=== PATIENT | female | born 1960 | race Caucasian/White ===

== ENCOUNTER → 2023-08-01 12:45 | Outpatient (REF) | payer MEDICARE, OTHER, SELFPAY | LOC: DHCBC/DCA 12:45 | PROVIDERS: ATTENDING PHYSICIAN Internal Medicine; FAMILY PHYSICIAN Nurse Practitioner Adult Health | DX: Z01.810 Encounter for preprocedural cardiovascular examination (principal); I10 Essential (primary) hypertension; I63.512 Cerebral infarction due to unspecified occlusion or stenosis of left middle cerebral artery; R06.09 Other forms of dyspnea | CPT/HCPCS: 78452; 93017; A9500; J2785 ==

== ENCOUNTER → 2023-08-02 10:36 | Outpatient (REF) | payer MEDICARE, OTHER, SELFPAY | LOC: HWRCS 10:36 | PROVIDERS: ATTENDING PHYSICIAN Internal Medicine; FAMILY PHYSICIAN Nurse Practitioner Adult Health | DX: Z01.810 Encounter for preprocedural cardiovascular examination (principal); I10 Essential (primary) hypertension; I63.512 Cerebral infarction due to unspecified occlusion or stenosis of left middle cerebral artery; R91.1 Solitary pulmonary nodule; R06.09 Other forms of dyspnea | CPT/HCPCS: 93306 ==

== ENCOUNTER 2023-08-28 11:32 | Inpatient (IN) | payer MEDICARE, OTHER, SELFPAY ==
[2023-08-01 09:15] VITALS: BMI 28.0
[2023-08-01 09:46] LABS: Hematocrit 47.3 % (37.0-47.0); Hemoglobin 16.5 g/dL (12.0-16.0); Mean Corp Hgb Conc. 34.9 g/dL (33.0-37.0); Mean Corpuscular Hgb 31.5 pg (27.0-31.0); Mean Corpuscular Volume 90.3 fL (81.0-99.0); Mean Platelet Volume 10.6 fL (7.4-10.4); Platelet Count 297 10^3/uL (130-400); Red Blood Cell Count 5.24 10^6/uL (4.20-5.40)
[2023-08-01 09:54] LABS: INR 0.97; PT 12.9 Sec (11.4-14.6)
[2023-08-01 10:07] LABS: APTT 46.4 Sec (23.4-35.0)
[2023-08-01 12:25] LABS: ALT (SGPT) 19 U/L (0-35); AST (SGOT) 24 U/L (14-36); Albumin 4.2 g/dl (3.5-5.0); Alkaline Phosphatase 84 U/L (38-126); Blood Urea Nitrogen 19 mg/dl (7-17); Calcium 10.2 mg/dl (8.4-10.2); Carbon Dioxide 28 mmol/L (22-30); Chloride 105 mmol/L (98-107); Estimated Creatinine Clearance 64 ml/min; Glucose 100 mg/dl (70-99); Potassium 5.3 mmol/L (3.5-5.1); Sodium 141 mmol/L (135-145); Total Bilirubin 0.4 mg/dl (0.2-1.3); Total Protein 6.8 g/dl (6.3-8.2); eGFR > 60.00
--- NOTE | 2023-08-02 08:15 | PTCARENOTE ---
Heide @ Dr. Palmer office notified of patients PTT 46.4 collected on 07/31
[2023-08-28] VITALS (16 sets, daily range): BP systolic 70–124; BP diastolic 43–77; BMI 28.0; BMI 29.3
[2023-08-28 12:03] LABS: Glucose - Point of Care 138 mg/dl (70-99)
[2023-08-28] MEDS: NEURONTIN 300 MG PO (12:08)
[2023-08-28] MEDS: NORMOSOL-R 1000 IV (12:08)
[2023-08-28] MEDS: TYLENOL 1000 MG PO (12:08)
[2023-08-28] MEDS: HEPARIN 5000 UNITS SC ×2 (12:09→20:07)
[2023-08-28 15:39] LABS: Glucose - Point of Care 113 mg/dl (70-99)
[2023-08-28] MEDS: NEO-SYNEPHRINE 250 IV (16:17)
[2023-08-28] MEDS: D5/0.9% SODIUM CHLORIDE 1000 IV (17:15)
[2023-08-28 18:07] LABS: Glucose - Point of Care 162 mg/dl (70-99)
--- NOTE | 2023-08-28 18:13 | PTCARENOTE ---
Pt rec'd into IMU 3347 from PACU, on IVF and Yoel gtt at 25 mcg/min...order clarified with Dr. Wang. Pt is AOx3 with no complaints of pain. Right chest tube in place to water seal, no further drainage after initial ~10 ml blood noted as per report
from [facility]. PT is hungry for dinner, diet advanced to regular per orders. BPs improved to 101/77 at this time. Will wean yoel as able. Pt with call caldwell in reach, safe environment maintained.
[2023-08-28] MEDS: TYLENOL PO (19:14)
[2023-08-28] MEDS: NEURONTIN PO (19:52)
[2023-08-28] MEDS: COLACE 100 MG PO (20:06)
[2023-08-28] MEDS: GLUCOPHAGE 500 MG PO (20:06)
[2023-08-28] MEDS: TYLENOL 650 MG PO ×2 (20:06→23:20)
[2023-08-28] MEDS: LIPITOR 40 MG PO (20:06)
[2023-08-28] MEDS: NEURONTIN 200 MG PO (20:07)
[2023-08-28] MEDS: ROXICODONE 5 MG PO (20:39)
--- NOTE | 2023-08-28 20:40 | PTCARENOTE ---
Received pt from heidy IBRAHIM. Pt is AAOx3. NSR on the monitor. On Yoel gtt @ 25 mcg/min (see worklist). Pt on 2L NC O2 sat 95%, lungs coarse/diminished. Right chest tube in place to water seal. BRP x1. D5 NS infusing @ 75 ml/hr. Pt is laying
comfortable in bed with call caldwell in reach.
[2023-08-29] VITALS (17 sets, daily range): BP systolic 81–136; BP diastolic 62–96; PULSE 78; O2SAT 95–96
[2023-08-29] MEDS: TYLENOL 650 MG PO ×6 (02:57→23:09)
[2023-08-29] MEDS: ROXICODONE 5 MG PO ×3 (02:57→15:18)
[2023-08-29] MEDS: SYNTHROID 112 MCG PO (05:28)
[2023-08-29] MEDS: D5/0.9% SODIUM CHLORIDE 1000 IV (05:28)
[2023-08-29] MEDS: CYMBALTA DELAYED RELEASE 60 MG PO (08:54)
[2023-08-29] MEDS: NEURONTIN 200 MG PO ×3 (08:56→21:43)
[2023-08-29] MEDS: COZAAR 25 MG PO (08:56)
[2023-08-29] MEDS: GLUCOPHAGE 500 MG PO ×2 (08:56→17:13)
[2023-08-29] MEDS: COLACE 100 MG PO ×2 (08:56→20:07)
[2023-08-29] MEDS: HEPARIN 5000 UNITS SC ×2 (08:57→20:07)
[2023-08-29] MEDS: VESICARE 5 MG PO (10:21)
--- NOTE | 2023-08-29 14:22 | PTCARENOTE ---
Patient with chest tube to R upper chest. Pt occasionally c/o of pain to the site, see MAR for administration. Chest tube had red drainage from chest, unchanged from prior. Patient is on RA 94-95%. Assessment, care and VS as charted.
--- NOTE | 2023-08-29 14:57 | CM ---
Patient who is s/p minimally invasive right lower lung tumor and mediastinal lymph node dissection. Chest tube. PT recommends Home PT vs No needs. OT recommends HH.
Met with patient and her friend Tobin.
The patient resides alone in a first floor apartment with 2 BERNABE.
The patient has been independent in ADLs and ambulation.
She is active and retired.
DME - shower chair
VN - prior VN, can't remember agency
SNF - prior SNF in [facility], can't remember name
PCP - - [facility]
[place] [facility] [place] and patient declined.
Plan home.
--- NOTE | 2023-08-29 15:35 | W.PN.GENERIC ---
Assessment / Plan
-
S/p resection righ lower lobe lung cancer POD #1
Stable
Chest tube dc'd
Will CXR in 2-3 hours, if ok then tsf to 2S
Encourage pulmonary toilet
OOB and ambulate
Physician Progress Note
Subjective
C/o some incisional pain.
Objective
Vital Signs
Temp Pulse Resp BP Pulse Ox
98.5 F 73 20 108/62 94
08/29/23 07:50 08/29/23 14:00 08/29/23 14:00 08/29/23 14:00 08/29/23 10:56
Lab Results
08/01/23 09:12
08/01/23 09:12
Chest - CTA x2. Incision - CDI
Chest tube without airleak and min output
[2023-08-29] MEDS: TORADOL 15 MG IV ×2 (15:56→21:43)
--- NOTE | 2023-08-29 19:59 | PTCARENOTE ---
At change of shift pt chest tube site was leaking a large amount of blood, tube was removed during dayshift. Site was cleaned and redressed.
[2023-08-29] MEDS: D5/0.9% SODIUM CHLORIDE IV (20:09)
[2023-08-29] MEDS: LIPITOR 40 MG PO (21:43)
[2023-08-30] VITALS: BP 113/65
[2023-08-30] MEDS: TYLENOL 650 MG PO ×3 (03:41→12:14)
[2023-08-30] MEDS: SYNTHROID 112 MCG PO (03:42)
[2023-08-30] MEDS: TORADOL 15 MG IV ×2 (03:42→10:20)
[2023-08-30 04:37] LABS: Blood Urea Nitrogen 14 mg/dl (7-17); Calcium 9.3 mg/dl (8.4-10.2); Carbon Dioxide 23 mmol/L (22-30); Chloride 111 mmol/L (98-107); Estimated Creatinine Clearance 87 ml/min; Glucose 103 mg/dl (70-99); Potassium 4.8 mmol/L (3.5-5.1); Sodium 138 mmol/L (135-145); eGFR > 60.00
[2023-08-30] MEDS: CYMBALTA DELAYED RELEASE 60 MG PO (08:24)
[2023-08-30] MEDS: COZAAR 25 MG PO (08:25)
[2023-08-30] MEDS: VESICARE 5 MG PO (08:25)
[2023-08-30] MEDS: GLUCOPHAGE 500 MG PO (08:25)
[2023-08-30] MEDS: COLACE 100 MG PO (08:29)
[2023-08-30] MEDS: HEPARIN 5000 UNITS SC (08:30)
[2023-08-30] MEDS: NEURONTIN 200 MG PO (08:30)
--- NOTE | 2023-08-30 11:36 | W.PN.GENERIC ---
Assessment / Plan
-
S/p Resection of the right lower lobe cancer
Stable with good pain control
Encourage pulmonary toilet
Await final path
PT to see patient. If she is steady on her feet, possible dc today
Physician Progress Note
Subjective
No complaints. Some drainage from the old chest tube site
Objective
Vital Signs
Temp Pulse Resp BP Pulse Ox
97.7 F 78 18 110/75 92
08/30/23 07:15 08/30/23 08:25 08/30/23 08:25 08/30/23 08:25 08/30/23 08:25
Lab Results
08/01/23 09:12
08/30/23 03:37
Chest - clear
--- NOTE | 2023-08-30 14:25 | W.DS.TRANS ---
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
-
Discharge Instructions:
Sleep Apnea Risk Intermediate
Discharge Diagnosis/Procedures Right lower lobe lung cancer
Diet No restrictions
Activity As tolerated
Driving Restrictions Not until seen by your Dr
Bathing Restrictions OK to Shower
Instructions:
Stand-Alone Forms:
Changes to Home Medications: No
Discharge Medications:
DC Medications w/original date entered in [employer]
Multivitamin Gummies 5 gummy PO DAILY Supplement 08/03/23
aspirin 81 mg tablet,delayed release 81 mg PO DAILY Blood Clot Prevention/Tx 08/03/23
atorvastatin 40 mg tablet 40 mg PO HS High Cholesterol 08/03/23
clopidogrel 75 mg tablet 75 mg PO DAILY Blood Clot Prevention/Tx 08/03/23
duloxetine 60 mg capsule,delayed release 60 mg PO DAILY Mental Health/Anxiety 08/03/23
levothyroxine 112 mcg tablet 112 mcg PO DAILY Thyroid 08/03/23
losartan 25 mg tablet 25 mg PO DAILY Blood Pressure 08/03/23
mecobalamin (vitamin B12) 1 tab PO DAILY Supplement 08/03/23
metformin 500 mg tablet 500 mg PO BID Diabetes 08/03/23
oxycodone 10 mg tablet 10 mg PO BID Pain 08/03/23
solifenacin 5 mg tablet 5 mg PO DAILY overactive bladder 08/03/23
thiamine HCl (vitamin B1) 50 mg tablet (Vitamin B-1) 50 mg PO DAILY Supplement 08/03/23
Home Medication Changes
Pending Results: No
[2023-08-30 14:46] VITALS: BP 118/76
--- NOTE | 2023-08-30 15:29 | CM ---
Met with patient who was preparing for discharge.
The patient says She feels ready for discharge home today. Her friend will provide transport home.
No CM d/c needs identified.
Plan home today.
--- NOTE | 2023-08-31 10:59 | OR.RPT ---
Operative Report
Operative Report
Patient Name: Kelly Choe
Date of : 1960
Date of Operation: August 28, 2023
Preoperative Diagnosis: �Right lower lobe lung nodule - R911
Postoperative Diagnosis: Right lower lobe lung cancer
Surgeon: Mekhi Wang M.D.
Operation: Minimally invasive resection of the right medial basal segment of the right lower lobe � [id number]
����������������� Mediastinal lymph node dissection
Anesthesia: GET
Estimated Blood Loss: 50 cc
Drains: 32F chest tube
Specimen: Right medial basal segment of the right lower lobe and mediastinal lymph nodes
Complications: �None
Procedure:
The patient was taken to the operating room and placed in the usual supine position. After an adequate double-lumen endotracheal tube was placed, the patient was positioned in the left decubitus position with the right chest up. The right chest was
prepped and draped in the usual sterile fashion. At this time, a 7 cm midaxillary incision was made with a #10 blade and this was taken through the skin into the subcutaneous tissue. The flaps were created anteriorly and posteriorly. The serratus
anterior muscle overlying the 5th intercostal space was identified and split along the course of the muscle fibers, and the chest was entered by dividing the intercostal muscle. A small pediatric Finochietto retractor was placed and ribs were gently
spread open. Using various long instruments, the right lower lobe was mobilized, and a small tumor was palpated in the medial basal segment of the right lower lobe, which was carefully resected. The segment was removed by dissecting it away from the
other segments and using an endo-ROLF stapler. The specimen was sent to pathology for a frozen section, which revealed findings consistent with non-small cell cancer. With this information, mediastinal lymph node dissection was performed. The lymph
nodes from stations 7, 8R, 4R, and 10E were removed and sent to pathology for permanent section. Hemostasis was obtained. A 32 Occitan chest tube was placed through an anterior thoracostomy incision, and this was anchored to the skin using a #2
Prolene stitch. The ribs were re-approximated in a transcostal fashion with #1 Vicryl. The serratus anterior muscle was approximated with #1 Vicryl in a running fashion. The fascia was approximated with #1 Vicryl in a running fashion. The
subcutaneous tissue was re-approximated with #3-0 Vicryl in a running fashion. The skin was approximated with #4-0 Monocryl in a running subcuticular fashion. Steri-strips and sterile dressings were applied. The chest tube was connected to a
Pleurovac. The patient was placed back in the supine position and extubated without any difficulties. The patient was transferred to the recovery. The final instruments, needles, and sponge counts were correct. The patient was extubated and
transferred to recovery.
== END 2023-08-30 15:06 | disposition home or self-care (01) | DRG 165 ==
LOC: IMU 11:32
PROVIDERS: ADMITTING PHYSICIAN Surgery; FAMILY PHYSICIAN Family Medicine
PROC: 07B70ZX Excision of Thorax Lymphatic, Open Approach, Diagnostic (ICD-10-PCS; 2023-08-28)
PROC: 0BBF0ZZ Excision of Right Lower Lung Lobe, Open Approach (ICD-10-PCS; 2023-08-28)
PROC: 0W9900Z Drainage of Right Pleural Cavity with Drainage Device, Open Approach (ICD-10-PCS; 2023-08-28)
DX: C34.31 Malignant neoplasm of lower lobe, right bronchus or lung (principal); I10 Essential (primary) hypertension; E11.9 Type 2 diabetes mellitus without complications; Z86.73 Personal history of transient ischemic attack (TIA), and cerebral infarction without residual deficits
CPT/HCPCS: 88305; 88307; 88332; 36415; 71045; 80048; 80053; 82962; 85027; 85610; 85730; 86850; 86900; 86901; 88313; 88331; 88341; 88342; 97116; 97163; 97167